=== PATIENT | female | born 1960 | race Caucasian/White ===

== ENCOUNTER 2016-05-17 16:42 | Emergency (ER) | payer OTHER | END 2016-05-17 17:42 | disposition home or self-care (01) | LOC: ER1 16:42 | DX: J11.1 Influenza due to unidentified influenza virus with other respiratory manifestations (principal); I10 Essential (primary) hypertension; Z79.899 Other long term (current) drug therapy | CPT/HCPCS: 87081; 87880; 99283 ==

== ENCOUNTER → 2020-03-11 | Day surgery (SDC) | payer OTHER ==
[~2020-03-11] MED LIST: ECOTRIN325 MG PO; MEGA BIOTIN10000 MCG PO; PROGESTERONE100 MG PO; PROTONIX 40 MG40 M1 PO; VITAMIN B-121000 MCG PO; VITAMIN D250000 UNIT PO; ZESTORETIC 10-1 EACH PO
== END | disposition home or self-care (01) ==
LOC: OR 06:29
PROVIDERS: Internal Medicine Gastroenterology
PROC: 0DBP8ZX Excision of Rectum, Via Natural or Artificial Opening Endoscopic, Diagnostic (ICD-10-PCS; 2020-03-11)
PROC: 0DBB8ZX Excision of Ileum, Via Natural or Artificial Opening Endoscopic, Diagnostic (ICD-10-PCS; principal; 2020-03-11 14:45)
DX: Z12.11 Encounter for screening for malignant neoplasm of colon (principal); K63.3 Ulcer of intestine; K64.1 Second degree hemorrhoids; K62.1 Rectal polyp; I10 Essential (primary) hypertension; F17.210 Nicotine dependence, cigarettes, uncomplicated; K22.70 Barrett's esophagus without dysplasia; K21.9 Gastro-esophageal reflux disease without esophagitis; E66.01 Morbid (severe) obesity due to excess calories; Z88.2 Allergy status to sulfonamides; Z88.8 Allergy status to other drugs, medicaments and biological substances; Z79.82 Long term (current) use of aspirin; Z79.899 Other long term (current) drug therapy; Z20.822 Contact with and (suspected) exposure to COVID-19
CPT/HCPCS: J2001; J2704; J7040

== ENCOUNTER → 2020-07-27 | Outpatient (CLI) | payer OTHER | LOC: HEART 5 07-19 15:00 | DX: I48.91 Unspecified atrial fibrillation (principal) ==

== ENCOUNTER → 2020-08-17 | Outpatient (CLI) | payer OTHER | LOC: HEART 5 09:08 | DX: I48.91 Unspecified atrial fibrillation (principal); I11.9 Hypertensive heart disease without heart failure | CPT/HCPCS: 93306 ==